=== PATIENT | female | born 1935 ===

== ENCOUNTER 2022-10-15 14:15 | Emergency (ER) | payer OTHER, SELFPAY ==
--- NOTE | ~2022-10-15 | CT_ITS ---
EXAMINATION: CT HEAD/BRAIN WITHOUT CONTRAST CT CERVICAL SPINE WITHOUT CONTRAST CT FACIAL BONES WITHOUT CONTRAST CLINICAL INFORMATION: Fall. Evaluate for bleed or fracture. COMPARISON: None available. TECHNIQUE: Axial images through the head, cervical spine and facial bones without IV contrast. Sagittal and coronal reconstructions obtained on the technologist's workstation. This CT examination was performed using dose optimization techniques as appropriate, variously including the following: *Automated exposure control. *Adjustment of mA and/or kV according to patient size (this includes techniques or standardized protocols for targeted exams where dose is matched to indication/reason for exam; i.e. extremities or head). *Use of iterative reconstruction technique. DLP: 940 mGy-cm FINDINGS: HEAD CT: There is a small subdural hematoma adjacent to the right temporal and frontal parietal lobes. This measures 5 mm in greatest thickness. No other evidence of intra-axial or extra-axial hemorrhage. The ventricles and extra-axial CSF spaces are prominent suggestive of generalized atrophy. There is nonspecific periventricular white matter disease. No mass, mass effect or infarct is seen. No skull fracture is seen. CERVICAL SPINE CT: There is loss of height of the superior endplate of the C7 vertebral body. There is linear increased sclerosis and this is more suggestive of mild compression fracture. There is also a Schmorl's node seen in the left superior endplate. There is a likely chip fracture of the left anterior corner of the C7 vertebral body. For example, sagittal reconstructed image 23. Question mild compression fracture of the T2 vertebral body. No other fracture is seen. Bone alignment is normal. There is mild degenerative spondylosis at C4-C5. There is disc space narrowing and mild degenerative spondylosis at C5-C6. There are degenerative changes of the cervical spine 1 dens articulation. Prevertebral soft tissues are normal. There is biapical pleural and parenchymal scarring. Small calcified left upper lobe pulmonary nodule. FACIAL BONE CT: No facial bone fracture. Bilateral maxillary and ethmoid sinus disease. Normal temporomandibular joints. Mastoid air cells and middle ears are clear. Orbits are normal. Soft tissues are normal. CT/CT cervical spine wo IV con IMPRESSION: HEAD CT: Very small right subdural hematoma adjacent to the right temporal, frontal and parietal lobes. CERVICAL SPINE CT: Probable mild compression fracture of the superior endplate of the C7 vertebral body and question mild compression fracture of the T2 vertebral body. Degenerative changes. FACIAL BONE CT: No fracture or dislocation. Inflammatory changes in the bilateral maxillary and ethmoid sinuses. Findings were communicated to Dr. Vail by telephone on 10/15/2022 at 1918 hours
[2022-10-15 14:34] VITALS: BP 122/73; PULSE 73; RESP 17; TEMP 36.1; O2SAT 97; BMI 14.9
--- NOTE | 2022-10-15 14:36 | ED_ITS ---
HPI - Fall General Chief Complaint: Fall Stated Complaint: fell loc Time Seen by Provider: 10/15/22 17:14 Source: family Mode of arrival: wheelchair Limitations: other (dementia) History of Present Illness HPI Narrative: Patient with history of dementia walks with walker or support got up of her own from chair and started walking and fell hitting her head to the ground daughter was next to her she saw her falling prior to fall patient was fine after the fall she was able to stand up and walk again came with small hematoma on right forehead no change in mental status no loss of consciousness Related Data Allergies Allergy/AdvReac Type Severity Reaction Status Date / Time seafood Allergy Hives Verified 10/15/22 14:42 Review of Systems Review of Systems: Yes Unobtainable due to mental status [facility] Social History Social History Advance Directives: No Advance Directives Information Provided: Yes Physical Exam Vital Signs: Vital Signs: Last Vital Signs Temp 98 F 10/15/22 18:48 Pulse 76 10/15/22 18:48 Resp 14 10/15/22 18:48 BP 136/68 10/15/22 18:48 Pulse Ox 98 10/15/22 18:48 O2 Del Method Room Air 10/15/22 18:48 BMI result Body Mass Index 14.9 Appearance: Alert. And awake demented Eyes: PERRLA, No Nystagmus HEENT: Pharynx normal. Oral Mucosa moist superficial hematoma right forehead Neck: Normal inspection. Neck supple. No midline tenderness CVS: Normal heart rate and rhythm. Pulses normal. Respiratory: No respiratory distress. Equal air entry bilateral, no rib tenderness Abdomen: Soft and nontender. Bowel sounds are present, Skin: Skin warm and dry. Normal skin color. Normal skin turgor. Extremities: No lower extremity edema. No calf tenderness stable pelvis Neuro: Alert and awake moving all 4 extremities low muscle mass Course Course Course Narrative: Patient accompanied by her daughter, patient has dementia and is usually not ambulatory from her wheelchair but occasionally tries to stand up, she tried to stand up and fell forward hitting her forehead and her face with possible brief loss of consciousness, daughter is states there is no evidence of any other injury Brief exam no tenderness in arms legs chest, no respiratory distress, patient is nonverbal CT head neck and face is ordered This is brief rapid medical exam in triage pending full evaluation history exam and dispo in the department Medications Administered Discontinued Medications Generic Name Dose Route Start Last Admin Trade Name Shannan PRN Reason Stop Dose Admin Lorazepam 1 mg 10/15/22 20:04 10/15/22 20:49 Lorazepam 1 Mg Tablet PO 10/15/22 20:05 1 mg ONCE ONE Administration Medical Decision Making Medical Decision Making [facility] Narrative: 20:45 Patient status post mechanical fall with small 5 mm in right temporal and frontal parietal without any midline shift also C-spine CT scan showed C7 superior endplate compression fracture without any displacement patient is very demented refused a collar placement Ativan 1 mg was given. Labs are stable not on any anticoagulation no focal deficit alert oriented to her baseline severely demented moving all [address] Garsia trauma at [facility] except the patient is a trauma consult will try to place hard collar again Lab Data MDM Lab Attestation statement: I reviewed the patient's lab results. 10/15/22 20:14 10/15/22 20:14 Labs: Lab Results 10/15/22 10/15/22 10/15/22 Range/Units 20:14 20:14 20:14 WBC 11.3 H (4.8-10.8) X10*3/uL RBC 4.07 L (4.20-5.50) X10*6/uL Hgb 11.0 L (12.0-16.0) g/dl Hct 33.8 L (37.0-47.0) % MCV 83.0 (80.0-98.0) fL MCH 27.0 (27.0-33.0) pg MCHC 32.5 (31.0-35.0) g/dl RDW 15.6 (11.0-16.0) % Plt Count 238 (160-400) X10*3/uL MPV 8.8 L (9.4-12.3) fL Immature Gran % (Auto) 0.4 (0.0-0.4) % Neut % (Auto) 78.3 H (45-73) % Lymph % (Auto) 10.3 L (20-40) % Garfield % (Auto) 7.4 (2-11) % Eos % (Auto) 3.1 (0-4) % Baso % (Auto) 0.5 (0-2) % Lymph # (Auto) 1.2 (1.2-4.9) X10*3/uL Garfield # (Auto) 0.8 (0.1-1.2) X10*3/uL Eos # (Auto) 0.4 (0.0-0.4) X10*3/uL Baso # (Auto) 0.1 (0.0-0.2) X10*3/uL Abs Immat Gran (auto) 0.04 H (0.00-0.03) X10*3/uL Absolute Neuts (auto) 8.8 H (2.0-8.3) x10*3/uL Absolute Nucleated RBC 0.000 (0.0-0.012) X10*3/uL Nucleated RBC % (auto) 0.0 (0.0-0.2) /100WBC PT 11.3 (10.0-13.1) SEC INR 1.0 (0.9-1.1) APTT 28.4 (26.0-36.4) SEC Sodium 139 (135-145) mmol/L Potassium 4.1 (3.3-5.1) mmol/L Chloride 106 (96-108) mmol/L Carbon Dioxide 27 (22-29) mmol/L Anion Gap 10 L (12-20) BUN 15 (9-16) mg/dL Creatinine 0.68 (0.5-1.4) mg/dL Estim Creat Clear Calc 37.0 Estimated GFR > 60 Random Glucose 84 (60-115) mg/dL Calcium 9.0 (8.4-10.2) mg/dL Magnesium 2.1 (1.6-2.6) mg/dL Total Bilirubin 0.3 (0.0-1.0) mg/dL AST 21 (5-31) U/L ALT 20 (0-31) U/L Alkaline Phosphatase 138 H (39-117) U/L Troponin I High Sens (<3.5-17.0) ng/L Total Protein 5.8 L (6.5-8.0) g/dL Albumin 3.5 (3.5-5.0) g/dL COVID-19 (KELI) (Negative) COVID-19 Clin Com 10/15/22 10/15/22 Range/Units 20:14 20:58 WBC (4.8-10.8) X10*3/uL RBC (4.20-5.50) X10*6/uL Hgb (12.0-16.0) g/dl Hct (37.0-47.0) % MCV (80.0-98.0) fL MCH (27.0-33.0) pg MCHC (31.0-35.0) g/dl RDW (11.0-16.0) % Plt Count (160-400) X10*3/uL MPV (9.4-12.3) fL Immature Gran % (Auto) (0.0-0.4) % Neut % (Auto) (45-73) % Lymph % (Auto) (20-40) % Garfield % (Auto) (2-11) % Eos % (Auto) (0-4) % Baso % (Auto) (0-2) % Lymph # (Auto) (1.2-4.9) X10*3/uL Garfield # (Auto) (0.1-1.2) X10*3/uL Eos # (Auto) (0.0-0.4) X10*3/uL Baso # (Auto) (0.0-0.2) X10*3/uL Abs Immat Gran (auto) (0.00-0.03) X10*3/uL Absolute Neuts (auto) (2.0-8.3) x10*3/uL Absolute Nucleated RBC (0.0-0.012) X10*3/uL Nucleated RBC % (auto) (0.0-0.2) /100WBC PT (10.0-13.1) SEC INR (0.9-1.1) APTT (26.0-36.4) SEC Sodium (135-145) mmol/L Potassium (3.3-5.1) mmol/L Chloride (96-108) mmol/L Carbon Dioxide (22-29) mmol/L Anion Gap (12-20) BUN (9-16) mg/dL Creatinine (0.5-1.4) mg/dL Estim Creat Clear Calc Estimated GFR Random Glucose (60-115) mg/dL Calcium (8.4-10.2) mg/dL Magnesium (1.6-2.6) mg/dL Total Bilirubin (0.0-1.0) mg/dL AST (5-31) U/L ALT (0-31) U/L Alkaline Phosphatase (39-117) U/L Troponin I High Sens 9.4 (<3.5-17.0) ng/L Total Protein (6.5-8.0) g/dL Albumin (3.5-5.0) g/dL COVID-19 (KELI) Negative (Negative) COVID-19 Clin Com See Note Independent Interpretation I performed an independent interpretation of an: EKG Interpretation: Normal sinus rhythm heart rate 73 beats per minute no acute ischemic changes nonspecific ST T-wave Radiology Impression Discussion of test interpretation with radiology: I have reviewed the radiologist's reading. Radiologist Impression: [address] [address] [address] Scan Report Signed Patient: Chloe Bui MR#: [id number] : 1935 Acct:[id number] Age/Sex: 86 / F ADM Date: 10/15/22 Loc: HO.ED Attending Dr: Ordering Physician: Endy Champagne Date of Service: 10/15/22 Procedure(s): CT head/brain wo IV con Accession Number(s): [id number] cc: Endy Champagne~ EXAMINATION: CT HEAD/BRAIN WITHOUT CONTRAST CT CERVICAL SPINE WITHOUT CONTRAST CT FACIAL BONES WITHOUT CONTRAST CLINICAL INFORMATION: Fall. Evaluate for bleed or fracture.? COMPARISON: None available.? TECHNIQUE: Axial images through the head, cervical spine and facial bones without IV contrast. Sagittal and coronal reconstructions obtained on the technologist's workstation. This CT examination was performed using dose optimization techniques as appropriate, variously including the following: *Automated exposure control. *Adjustment of mA and/or kV according to patient size (this includes techniques or standardized protocols for targeted exams where dose is matched to indication/reason for exam; i.e. extremities or head). *Use of iterative reconstruction technique. DLP: 940 mGy-cm? FINDINGS: HEAD CT: There is a small subdural hematoma adjacent to the right temporal and frontal parietal lobes. This measures 5 mm in greatest thickness. No other evidence of intra-axial or extra-axial hemorrhage. The ventricles and extra-axial CSF spaces are prominent suggestive of generalized atrophy. There is nonspecific periventricular white matter disease. No mass, mass effect or infarct is seen. No skull fracture is seen. CERVICAL SPINE CT: There is loss of height of the superior endplate of the C7 vertebral body. There is linear increased sclerosis and this is more suggestive of mild compression fracture. There is also a Schmorl's node seen in the left superior endplate. There is a likely chip fracture of the left anterior corner of the C7 vertebral body. For example, sagittal reconstructed image 23. Question mild compression fracture of the T2 vertebral body. No other fracture is seen. Bone alignment is normal. There is mild degenerative spondylosis at C4-C5. There is disc space narrowing and mild degenerative spondylosis at C5-C6. There are degenerative changes of the cervical spine 1 dens articulation. Prevertebral soft tissues are normal. There is biapical pleural and parenchymal scarring. Small calcified left upper lobe pulmonary nodule. FACIAL BONE CT: No facial bone fracture. Bilateral maxillary and ethmoid sinus disease. Normal temporomandibular joints. Mastoid air cells and middle ears are clear. Orbits are normal. Soft tissues are normal. CT/CT head/brain wo IV con IMPRESSION: HEAD CT: Very small right subdural hematoma adjacent to the right temporal, frontal and parietal lobes. ? CERVICAL SPINE CT: Probable mild compression fracture of the superior endplate of the C7 vertebral body and question mild compression fracture of the T2 vertebral body. Degenerative changes. ? FACIAL BONE CT: No fracture or dislocation. Inflammatory changes in the bilateral maxillary and ethmoid sinuses. Discharge Plan Discharge Clinical Impression: Acute subdural hematoma, Compression fracture of C7 vertebra, Fall Patient Disposition: [facility] Transfer Details: [facility] Trauma consult Dr. Garsia
--- NOTE | 2022-10-15 14:44 | ECG_ITS ---
Test Reason : Fall Blood Pressure : / mmHG Vent. Rate : 072 BPM Atrial Rate : 072 BPM P-R Int : 144 ms QRS Dur : 080 ms QT Int : 396 ms P-R-T Axes : 073 -25 038 degrees QTc Int : 433 ms Normal sinus rhythm Nonspecific ST and T wave abnormality Abnormal ECG No previous ECGs available Referred By: Endy Champagne Electronically Signed By:Dimitri Joyner
[2022-10-15 17:15] VITALS: BP 131/69; PULSE 70; RESP 15; TEMP 36.6; O2SAT 98
[2022-10-15 18:00] VITALS: BP 130/75; PULSE 78; RESP 16; TEMP 37
[2022-10-15 18:48] VITALS: BP 136/68; PULSE 76; RESP 14; TEMP 36.6; O2SAT 98
[2022-10-15 20:20] LABS: MANUAL DIFF FLAG NO
[2022-10-15 20:22] LABS: Basophils Absolute Auto 0.1 X10*3/uL (0.0-0.2); Basophils Percent Auto 0.5 % (0-2); Eosinophils Absolute Auto 0.4 X10*3/uL (0.0-0.4); Eosinophils Percent Auto 3.1 % (0-4); Hematocrit 33.8 % (37.0-47.0); Imm Gran Abs Auto 0.04 X10*3/uL (0.00-0.03); Imm Gran Pct Auto 0.4 % (0.0-0.4); Lymphocytes Absolute Auto 1.2 X10*3/uL (1.2-4.9); Lymphocytes Percent Auto 10.3 % (20-40); Mean Corpuscular HGB Conc 32.5 g/dl (31.0-35.0); Mean Platelet Volume 8.8 fL (9.4-12.3); Monocytes Absolute Auto 0.8 X10*3/uL (0.1-1.2); Monocytes Percent Auto 7.4 % (2-11); Neutrophils Absolute Auto 8.8 x10*3/uL (2.0-8.3); Neutrophils Percent Auto 78.3 % (45-73); Platelet Count 238 X10*3/uL (160-400); Red Blood Count 4.07 X10*6/uL (4.20-5.50); Red Cell Distribution Width 15.6 % (11.0-16.0); White Blood Count 11.3 X10*3/uL (4.8-10.8)
[2022-10-15 20:27] LABS: Prothrombin Time 11.3 SEC (10.0-13.1)
[2022-10-15 20:30] LABS: Partial Thromboplastin Time 28.4 SEC (26.0-36.4)
[2022-10-15 20:39] LABS: Alanine Aminotransferase 20 U/L (0-31); Albumin Level 3.5 g/dL (3.5-5.0); Alkaline Phosphatase 138 U/L (39-117); Anion Gap 10 (12-20); Aspartate Amino Transferase 21 U/L (5-31); Bilirubin Total 0.3 mg/dL (0.0-1.0); Blood Urea Nitrogen 15 mg/dL (9-16); Carbon Dioxide 27 mmol/L (22-29); Chloride 106 mmol/L (96-108); Estimated Glomerular Filt Rate > 60; Glucose Random 84 mg/dL (60-115); Magnesium 2.1 mg/dL (1.6-2.6); Potassium 4.1 mmol/L (3.3-5.1); Sodium 139 mmol/L (135-145); Total Protein 5.8 g/dL (6.5-8.0)
[2022-10-15 20:41] LABS: Troponin-I High Sensitivity 9.4 ng/L (<3.5-17.0)
[2022-10-15] MEDS: LORazepam 1 MG TABLET PO (20:49)
--- NOTE | 2022-10-15 21:14 | MHC.EDTECH ---
Patient was accepted to [facility] ED to Ed, provider accepted is .
[2022-10-15 21:21] LABS: COVID-19 Test Negative (Negative); IDNOW Serial# BCCEAD1C
--- NOTE | 2022-10-15 21:43 | PC.NURSE ---
pt refusing to put the C- collar per MD order. MD made aware. Neurological assessment preformed at bedside see Neurological assessment section. pt transfer to [facility] for neurological admission.
== END 2022-10-15 21:54 | disposition short-term general hospital (02) ==
PROVIDERS: Emergency Provider Internal Medicine; PCP Family Medicine Geriatric Medicine
DX: S06.5XAA Traumatic subdural hemorrhage with loss of consciousness status unknown, initial encounter (principal); S12.601A Unspecified nondisplaced fracture of seventh cervical vertebra, initial encounter for closed fracture; S00.83XA Contusion of other part of head, initial encounter; W01.0XXA Fall on same level from slipping, tripping and stumbling without subsequent striking against object, initial encounter; Z20.822 Contact with and (suspected) exposure to COVID-19; Y93.89 Activity, other specified; Y92.019 Unspecified place in single-family (private) house as the place of occurrence of the external cause; Y99.9 Unspecified external cause status
CPT/HCPCS: 36415; 70450; 70486; 72125; 80053; 83735; 84484; 85025; 85610; 85730; 87635; 93005; 99285